=== PATIENT | female | born 1955 | race Caucasian/White ===

== ENCOUNTER 2020-01-27 17:24 | Emergency (ER) | payer MEDICAID ==
[~2020-01-27] VITALS: Ht 152.4 cm; Wt 59.4 kg
[2020-01-27 17:29] VITALS: Ht 152.4 cm; Wt 59.4 kg
[2020-01-27 19:11] LABS: BASOPHIL % 0.5 % (0-2); PLATELET COUNT 160 x10^3mcL (130-400); RED CELL DISTRIBUTION WIDTH 15.4 % (11.5-14.5)
[2020-01-27 19:35] LABS: BILIRUBIN TOTAL 0.52 mg/dL (0.20-1.00); CARBON DIOXIDE 32.5 mmol/L (21-32); POTASSIUM SERUM 3.5 mmol/L (3.5-5.1); TOTAL PROTEIN, SERUM 7.8 g/dL (6.4-8.2)
[2020-01-27 19:41] LABS: CREATININE SERUM 4.7 mg/dL (0.6-1.0)
[2020-01-28 00:35] VITALS: BP 153/49
== END 2020-01-28 | disposition home or self-care (01) ==
LOC: ED 17:24
PROVIDERS: Emergency Medicine
DX: R10.816 Epigastric abdominal tenderness (principal); E11.22 Type 2 diabetes mellitus with diabetic chronic kidney disease; I12.0 Hypertensive chronic kidney disease with stage 5 chronic kidney disease or end stage renal disease; N18.6 End stage renal disease; Z99.2 Dependence on renal dialysis; Z20.828 Contact with and (suspected) exposure to other viral communicable diseases
CPT/HCPCS: 83880; J3490; Q0092